=== PATIENT | female | born 1970 | race Caucasian/White ===

== ENCOUNTER 2017-04-30 13:31 | Inpatient (IN) | payer OTHER ==
[~2017-04-30] VITALS: Ht 162.6 cm; Wt 87.3 kg
--- NOTE | 2017-04-30 14:02 | NUR ---
PATIENT IS CRYING AND BREATHING FAST. STATES SHE FEELS SOB. STATES SHE HAD A SIMILAR "EPISODE" A FEW WEEKS AGO. PLACED ON CONTINUOUS CARDIAC MONITORING.
[2017-04-30 16:13] LABS: HEMATOCRIT 44.2 % (37-47); HEMOGLOBIN 14.9 G/DL (12.0-16.0); MEAN CORPUSCULAR HEMOGLOBIN 30.7 UUG (27.0-31.0); MEAN CORPUSCULAR HGB CONC 34 g/dL (32.0-37.0); MEAN CORPUSCULAR VOLUME 91.3 FL (81.0-99.0); PLATELET COUNT (AUTO) 283 K/UL (150-450); RED BLOOD CELL COUNT(AUTO) 4.84 MIL/UL (4.2-5.4); WHITE BLOOD COUNT (AUTO) 12.7 K/UL (4.0-11.2)
[2017-04-30 16:18] LABS: CARBON DIOXIDE 29 mmol/L (21-32); CHLORIDE 106 mmol/L (98-107); CREATININE 0.8 mg/dL (0.6-1.3); GLUCOSE 89 mg/dL (74-106); POTASSIUM 4.2 mmol/L (3.5-5.1); UREA NITROGEN, BLOOD 12 mg/dL (7-18)
[2017-04-30 16:31] LABS: ALANINE AMINOTRANSFERASE 35 U/L (14-59); ALKALINE PHOSPHATASE 70 U/L (50-136); ASPARTATE AMINOTRANSFERASE 22 U/L (15-37); BILIRUBIN,DIRECT < 0.1 mg/dL (0.0-0.2); BILIRUBIN,TOTAL 0.2 mg/dL (0.2-1.0)
--- NOTE | 2017-04-30 17:01 | NUR ---
DR SIERRA WAS AT BEDSIDE SPEAKING TO PATIENT ABOUT TEST RESULTS AND PLAN OF CARE.
[2017-04-30 17:02] LABS: BAND % (MANUAL) 4 % (0-10); LYMPHOCYTES % (MANUAL) 15 % (20-40); MONOCYTES % (MANUAL) 9 % (2-10); NEUTROPHILS % (MANUAL) 72 % (42-75)
--- NOTE | 2017-04-30 18:10 | NUR ---
PATIENT STATES SHE FEELS MUCH BETTER NOW AND SHE IS NO LONGER CRYING OR SHAKING OR FEELING SOB. SHE AMBULATED TO BATHROOM IN STEADY GAIT.
--- NOTE | 2017-04-30 19:55 | NUR ---
transfered to 2nd floor via wheelcahir
--- NOTE | 2017-04-30 20:04 | NUR ---
RECEIVED PATIENT FROM ER VIA WHEELCHAIR. USHERED SAFELY TO BED. SAFETY INITIATED. CALL LIGHT WITHIN REACH. NO C/O CHEST PAIN, PALPITATIONS. NO ACUTE DISTRESS NOTED. BED IN LOCK POSITION. BELONGINGS LIST DONE. ASSESSMENT DONE. A&O X 4. SKIN INTACT. AMBULATORY WITH NO ASSISTANCE. TELE MONITOR PLACED. SR. VSS. WILL WAIT FOR ORDERS. WILL GIVE MEDS ORDERED. WILL CONTINUE TO MONITOR.
[2017-04-30 21:00] VITALS: BP 136/79
[2017-05-01 05:29] VITALS: BP 123/74
--- NOTE | 2017-05-01 06:28 | NUR ---
PATIENT SLEPT INTERMITTENTLY T/O THE NIGHT. NO C/O PAIN, SOB, CP AND PALPITATION. NO ACUTE DISTRESS NOTED. VSS. TELE SR. ALL NEEDS MET.
[2017-05-01 06:38] LABS: BASOPHILS % (AUTO) 0.2 % (0.0-2.0); EOSINOPHILS # (AUTO) 0.2 K/uL (0.0-0.7); EOSINOPHILS % (AUTO) 1.9 % (0.0-7.0); HEMATOCRIT 42.5 % (37-47); HEMOGLOBIN 14.4 G/DL (12.0-16.0); LYMPHOCYTES % (AUTO) 20.4 % (20.5-51.5); MEAN CORPUSCULAR HGB CONC 34 g/dL (32.0-37.0); MEAN CORPUSCULAR VOLUME 91.5 FL (81.0-99.0); MONOCYTES # (AUTO) 0.6 K/UL (0.1-1.30); MONOCYTES % (AUTO) 6.2 % (0.0-11.0); NEUTROPHILS # (AUTO) 7.1 K/UL (1.8-8.9); NEUTROPHILS % (AUTO) 71.3 % (38.5-71.5); PLATELET COUNT (AUTO) 278 K/UL (150-450); RED BLOOD CELL COUNT(AUTO) 4.64 MIL/UL (4.2-5.4); WHITE BLOOD COUNT (AUTO) 9.9 K/UL (4.0-11.2)
[2017-05-01 07:07] LABS: THYROID STIMULATING HORMONE 3.586 mIU/mL (0.358-3.740)
[2017-05-01 07:12] LABS: BILIRUBIN,TOTAL 0.4 mg/dL (0.2-1.0); CREATININE 0.8 mg/dL (0.6-1.3); MAGNESIUM 1.8 mg/dL (1.8-2.4); PHOSPHOROUS 3.9 mg/dL (2.5-4.9); POTASSIUM 3.6 mmol/L (3.5-5.1); TOTAL PROTEIN, SERUM 6.4 g/dL (6.4-8.2)
--- NOTE | 2017-05-01 07:50 | NUR ---
PATIENT RECEIVED IN ROOM RESTING ALERT AWAKE IN NO ACUTE DISTRESS. WHILE TALKING TO PATIENT PATIENT BECAME ANXIOUS, INCREASED RESPIRATION RATE NOTED, STARED CRYING. O2 SAT 99% IN ROOM AIR. SR ON [employer]. PATIENT ENCOURAGED TO TAKE SLOW DEEP BREATHS AND IT WAS HELPFUL. PATIENT STARTED TO CALM DOWN AND RR IMPROVED. ENCOURAGED TO CALL FOR ASSISTANCE IF SHE EXPERIENCED ANOTHER EPISODE.
[2017-05-01 10:40] LABS: *BILIRUBIN,URIN NEGATIVE (NEGATIVE); *BLOOD, URINE NEGATIVE (NEGATIVE); *CLARITY,URINE CLOUDY (CLEAR); *COLOR,URINE YELLOW (YELLOW); *KETONES,URINE NEGATIVE (NEGATIVE); *PROTEIN,URINE NEGATIVE (NEGATIVE); *UROBILINOGEN,URINE 0.2 E.U./dl (NORMAL); LEUKOCYTE ESTERASE ,URINE 1+ (NEGATIVE); NITRITE, URINE POSITIVE (NEGATIVE); PH,URINE 7.5 (5.0-8.0); UGLUCOSE NEGATIVE (NEGATIVE)
[2017-05-01 10:47] LABS: BACTERIA,URINE MANY /HPF (NONE SEEN); RBC,URINE 0-3 /HPF (0-3); SQUAMOUS EPITHELIAL CELL,UR FEW /HPF (NONE SEEN)
[2017-05-01 11:44] VITALS: BP 118/76
--- NOTE | 2017-05-01 12:38 | NUR ---
PATIENT SEEN BY DR. MOHR.
[2017-05-01 15:13] VITALS: BP 110/73
--- NOTE | 2017-05-01 19:30 | NUR ---
PT RECEIVED IN BED, AWAKE. A/OX4. ABLE TO MAKE NEEDS KNOWN. V/S STABLE. IN NO ACUTE DISTRESS. NO C/O OF PAIN AT THIS TIME. IVF INFUSING. PT WAITING FOR DISCHARGE. SAFETY MEASURES IMPLEMENTED. CALL LIGHT WITHIN REACH.
[2017-05-01] MEDS ORDERED: MULT-24 PO (19:59)
[2017-05-01] MEDS ORDERED: SERT50TA12 PO (19:59)
[2017-05-01] MEDS ORDERED: ATOR10TA PO (19:59)
[2017-05-01] MEDS ORDERED: THIA100T13 PO (19:59)
[2017-05-01] MEDS ORDERED: FOLI1TAB16 PO (19:59)
[2017-05-01] MEDS ORDERED: SULF1TAB48 PO (19:59)
[2017-05-01 20:00] VITALS: BP 110/65
--- NOTE | 2017-05-01 20:45 | NUR ---
PT DISCHARGE PACKET SIGNED. PRESCRIPTION GIVEN TO PATIENT. PT BELONGINGS LIST SIGNED. IV D/C. PT IN STABLE CONDITION UPON DISCHARGE.
== END 2017-05-01 20:56 | disposition home or self-care (01) | DRG 690 ==
LOC: ER 13:31 → TELE 19:44 → MED 05-01 13:46
PROVIDERS: ADMIT Internal Medicine; ATTEND Internal Medicine
DX: N39.0 Urinary tract infection, site not specified (principal); B96.20 Unspecified Escherichia coli [E. coli] as the cause of diseases classified elsewhere; F41.9 Anxiety disorder, unspecified; R07.9 Chest pain, unspecified; E78.5 Hyperlipidemia, unspecified; E66.9 Obesity, unspecified; F17.210 Nicotine dependence, cigarettes, uncomplicated; G47.33 Obstructive sleep apnea (adult) (pediatric); Z98.82 Breast implant status; R47.1 Dysarthria and anarthria; Z68.33 Body mass index [BMI] 33.0-33.9, adult; F10.10 Alcohol abuse, uncomplicated; R06.00 Dyspnea, unspecified; F41.0 Panic disorder [episodic paroxysmal anxiety]; D72.829 Elevated white blood cell count, unspecified; R94.31 Abnormal electrocardiogram [ECG] [EKG]; Z71.6 Tobacco abuse counseling; Z98.890 Other specified postprocedural states
CPT/HCPCS: 36415; 70030-TC; 70450; 71010; 83735; 84100; 84443; 84703; 85025; 85730; 87077; 87086; 93005; 93307; A4663; J0696; J2060; J7030; J7060